=== PATIENT | female | born 1935 | race Asian ===

== ENCOUNTER 2017-02-07 16:09 | Inpatient (IN) | payer OTHER ==
[~2017-02-07] VITALS: Ht 154.9 cm; Wt 45.4 kg
[2017-02-07 17:50] LABS: BASOPHIL % 0.1 % (0-2); PLATELET COUNT 174 x10^3mcL (130-400)
[2017-02-07 17:55] LABS: CALCIUM 8.9 mg/dL (8.5-10.1); CARBON DIOXIDE 27.8 mmol/L (21-32); CHLORIDE SERUM 105 mmol/L (98-107); CREATININE SERUM 0.7 mg/dL (0.6-1.0); GLUCOSE SERUM 135 mg/dL (74-106); POTASSIUM SERUM 3.5 mmol/L (3.5-5.1); RED CELL DISTRIBUTION WIDTH 14.9 % (11.5-14.5); SODIUM SERUM 140 mmol/L (136-145)
[2017-02-07 17:59] LABS: ALKALINE PHOSPHATASE 88 U/L (46-116); AST/SGOT 24 U/L (15-37); BILIRUBIN TOTAL 0.46 mg/dL (0.20-1.00)
[2017-02-07 18:00] LABS: CHOLESTEROL 228 mg/dL (<200)
[2017-02-07 18:10] LABS: ALT/SGPT 15 U/L (14-59)
[2017-02-07 18:33] LABS: microscopic required? YES; urine erythrocyte TRACE (NEGATIVE)
[2017-02-07] MEDS ORDERED: ALENDRONATE SOD70 M2 (20:21)
[2017-02-07] MEDS ORDERED: NORVASC2.5 MG (20:21)
[2017-02-07] MEDS ORDERED: LIPI10 (20:21)
[2017-02-07] MEDS ORDERED: XARELTO10 M1 (20:22)
[2017-02-07] MEDS ORDERED: PAXIL10 MG (20:22)
[2017-02-07] MEDS ORDERED: AMBIEN5 MG (20:22)
[2017-02-07] MEDS ORDERED: GABAPENTIN100 M2 (20:22)
[2017-02-07] MEDS ORDERED: SINEMET 25-1001 TAB (20:23)
[2017-02-07 21:31] VITALS: BP 155/75
[2017-02-07 21:33] VITALS: Ht 154.9 cm; Wt 45.4 kg
[2017-02-07 21:36] LABS: MAGNESIUM 2.1 mg/dL (1.8-2.4); PHOSPHOROUS 2.8 mg/dL (2.5-4.9)
[2017-02-07 21:39] LABS: CHOLESTEROL/HDL RATIO 3.5
[2017-02-07 21:42] LABS: T3 TOTAL 0.9 ng/mL
[2017-02-07 21:50] LABS: FREE T4 1.04 ng/dL (0.76-1.46)
[2017-02-08 05:56] VITALS: BP 135/65
[2017-02-08 06:29] LABS: BASOPHIL % 0.4 % (0-2); PLATELET COUNT 141 x10^3mcL (130-400)
[2017-02-08 06:36] LABS: CALCIUM 8.1 mg/dL (8.5-10.1); CARBON DIOXIDE 25.2 mmol/L (21-32); CHLORIDE SERUM 106 mmol/L (98-107); CREATININE SERUM 0.7 mg/dL (0.6-1.0); GLUCOSE SERUM 93 mg/dL (74-106); POTASSIUM SERUM 3.5 mmol/L (3.5-5.1); SODIUM SERUM 143 mmol/L (136-145)
[2017-02-08 06:54] LABS: RED CELL DISTRIBUTION WIDTH 15.2 % (11.5-14.5)
[2017-02-08 09:52] VITALS: BP 119/56
[2017-02-08 13:28] VITALS: BP 120/64
[2017-02-08 16:39] VITALS: BP 115/56
[2017-02-08 21:16] VITALS: BP 116/59
[2017-02-09 05:43] VITALS: BP 149/75
[2017-02-09 07:08] LABS: BASOPHIL % 0.4 % (0-2); PLATELET COUNT 132 x10^3mcL (130-400)
[2017-02-09 07:26] LABS: RED CELL DISTRIBUTION WIDTH 14.9 % (11.5-14.5)
[2017-02-09 09:31] VITALS: BP 157/73
[2017-02-09 13:51] VITALS: BP 155/75
[2017-02-09 17:11] VITALS: BP 106/70
[2017-02-09 21:17] VITALS: BP 116/62
[2017-02-10 05:41] VITALS: BP 137/73
[2017-02-10 06:26] LABS: BASOPHIL % 0.6 % (0-2); CARBON DIOXIDE 25.9 mmol/L (21-32); CHLORIDE SERUM 107 mmol/L (98-107); CREATININE SERUM 0.6 mg/dL (0.6-1.0); GLUCOSE SERUM 90 mg/dL (74-106); MAGNESIUM 2.1 mg/dL (1.8-2.4); PHOSPHOROUS 2.4 mg/dL (2.5-4.9); PLATELET COUNT 137 x10^3mcL (130-400); POTASSIUM SERUM 3.5 mmol/L (3.5-5.1); SODIUM SERUM 141 mmol/L (136-145)
[2017-02-10 06:35] LABS: RED CELL DISTRIBUTION WIDTH 15.4 % (11.5-14.5)
[2017-02-10 10:30] VITALS: BP 161/70
[2017-02-10 15:36] VITALS: BP 129/63
[2017-02-10 17:50] VITALS: BP 123/66
[2017-02-10 20:57] VITALS: BP 139/70
== END 2017-02-10 21:40 | DRG 914 ==
LOC: ED 16:09 → DU 20:07 → MU 20:07 → DU 21:15 → MU 02-09 08:51
PROVIDERS: Emergency Medicine; ADMIT Family Medicine Sports Medicine
DX: S39.92XA Unspecified injury of lower back, initial encounter (principal); Z68.1 Body mass index [BMI] 19.9 or less, adult; M47.896 Other spondylosis, lumbar region; G90.9 Disorder of the autonomic nervous system, unspecified; M54.5 Low back pain; G89.29 Other chronic pain; M81.0 Age-related osteoporosis without current pathological fracture; M16.0 Bilateral primary osteoarthritis of hip; G20 Parkinson's disease; E78.5 Hyperlipidemia, unspecified; F32.9 Major depressive disorder, single episode, unspecified; Z91.81 History of falling; Z86.718 Personal history of other venous thrombosis and embolism; Z79.01 Long term (current) use of anticoagulants; W01.0XXA Fall on same level from slipping, tripping and stumbling without subsequent striking against object, initial encounter; Y92.121 Bathroom in nursing home as the place of occurrence of the external cause
CPT/HCPCS: 83880; 84439; 90732; 97110-GP; 97530-GP; G0480; J1885; J2270; J2405; J7030; Q0092